=== PATIENT | male | born 1935 | race Caucasian/White ===

== ENCOUNTER 2016-07-16 12:02 | Inpatient (IN) | payer MEDICARE ==
[2016-07-16] MEDS ORDERED: NS 0.9% 1000 ML* 3,000 ML IV ONE (12:12)
[2016-07-16 12:37] LABS: Comments Flag Yes; Hematocrit 38 % (42-52); Mean Corpuscular HGB Conc 34 g/dl (31-36); Mean Corpuscular Hemoglobin 32 pg (27-31); Mean Corpuscular Volume 94 fL (80-94); Mean Platelet Volume 8 um3 (7.4-10.4); Red Blood Count 4.05 10^6/ul (4.0-5.4); Red Cell Distribution Width 14 % (10.5-15); White Blood Count 2.9 10^3/ul (3.5-10.8)
[2016-07-16 12:38] LABS: Add Diff/Slide Review? Slide Review Added
--- NOTE | 2016-07-16 12:38 | RAD ---
HISTORY: Cough, shortness of breath, pneumonia COMPARISONS: July 09, 2011 VIEWS: 2: Frontal dual-energy and lateral views of the chest. FINDINGS: CARDIOMEDIASTINAL SILHOUETTE: The cardiomediastinal silhouette is normal. KIRT: The kirt are normal. PLEURA: The costophrenic angles are sharp. No pleural abnormalities are noted. LUNG PARENCHYMA: The lungs are clear. ABDOMEN: The upper abdomen is clear. There is no subphrenic gas. BONES AND SOFT TISSUES: No bone or soft tissue abnormalities are noted. OTHER: None. IMPRESSION: NO ACTIVE CARDIOPULMONARY DISEASE.
[2016-07-16 12:57] LABS: BUN/Creatinine Ratio 25.3 (8-20); C Reactive Protein 8.1 mg/L (< 5.00); EGFR African American 102.8 (>60); Globulin 2.9 g/dL (2-4); Potassium 3.8 mmol/L (3.5-5.0); Total Bilirubin 0.7 mg/dL (0.2-1.0); Total Protein 6.9 g/dL (6.4-8.9)
[2016-07-16 13:04] LABS: Troponin I 0.04 ng/mL (<0.04)
[2016-07-16] MEDS ORDERED: Acetaminophen TAB* 325 MG PO ONE (13:16)
[2016-07-16] MEDS ORDERED: Aspirin Low Dose CHEW TAB* 81 MG PO ONE (13:17)
[2016-07-16] MEDS ORDERED: Oseltamivir CAP* 75 MG PO ONE (13:18)
[2016-07-16] MEDS ORDERED: Acetaminophen TAB* 325 MG PO PRN (14:20)
[2016-07-16] MEDS ORDERED: HYDROcodone/ACETAMIN 5-325 MG* 1 TAB PO PRN (14:33)
--- NOTE | 2016-07-16 15:44 | ED ---
Michael Canela Billy, scribed for Chapincito Keith MD on 07/16/16 at 1307 . Complex/Multi-Sys Presentation - HPI Summary HPI Summary: Patient is an 81 year-old male coming to [facility] from Dr. Cooper's office for evaluating of three days of cough and rhinorrhea. Patient also reports a headache, aches, and subjective fever. Denies any SOB, nausea, vomiting, or diarrhea. Nothing makes his symptoms better/worse. He has ongoing right shoulder pain s/p mechanical fall 2 weeks ago. Denies any recent influenza vaccinations. PMHx of HTN and afib. - History Of Current Complaint Chief Complaint: EDGeneral Time Seen by Provider: 07/16/16 12:07 Hx Obtained From: Patient Onset/Duration: Gradual Onset, Lasting Days, Still Present Timing: Constant Severity Currently: Moderate Severity Initially: Moderate Aggravating Factor(s): none Alleviating Factor(s): none Associated Signs And Symptoms: Positive: Cough, Fever, Other - myalgia, rhinorrhea,. Negative: SOB, Nausea, Vomiting, Diarrhea - Allergies/Home Medications Allergies/Adverse Reactions: Allergies Allergy/AdvReac Type Severity Reaction Status Date / Time Penicillins Allergy Intermediate RASH/HIVES Verified 12/14/14 14:54 Amitriptyline Allergy SEVERE Verified 12/14/14 14:54 NAUSEA AND VOMITING Amlodipine Allergy Unknown Verified 12/14/14 14:54 Reaction Details Doxycycline Allergy Unknown Verified 12/14/14 14:54 Reaction Details Gabapentin Allergy Unknown Verified 12/14/14 14:54 Reaction Details Meloxicam Allergy Unknown Verified 12/14/14 14:54 Reaction Details Temazepam Allergy Unknown Verified 12/14/14 14:54 Reaction Details SULFA/BACTRIM Allergy GI Upset Uncoded 12/14/14 14:54 Home Medications: Home Medications Cyclobenzaprine TAB* [Flexeril 10 MG TAB*] 10 mg PO BEDTIME 07/16/16 [History Confirmed 07/16/16] Desonide 0.005% OINT(NF) 1 applic TOPICAL BID 07/16/16 [History Confirmed ] Finasteride TAB* [Proscar TAB*] 5 mg PO DAILY 07/16/16 [History Confirmed ] Hydrocodone/Acetamin 10/325(NF [Muscoda 10/325 (NF)] 1 tab PO Q6H PRN 07/16/16 [ History Confirmed 07/16/16] Ketoconazole (Topical) [Ketoconazole] 2 % TOPICAL .TWICE WEEKLY PRN 07/16/16 [ History Confirmed 07/16/16] Metoprolol Succinate XL TAB* [Toprol XL TAB*] 25 mg PO DAILY 07/16/16 [History Confirmed 07/16/16] Pantoprazole TAB (NF) [Protonix TAB (NF)] 40 mg PO DAILY 07/16/16 [History Confirmed 07/16/16] Rivaroxaban TAB(*) [Xarelto 20 mg] 20 mg PO DAILY 07/16/16 [History Confirmed ] Spironolactone TAB* [Aldactone TAB*] 25 mg PO DAILY 07/16/16 [History Confirmed 07/16/16] Tamsulosin CAP* [Flomax CAP*] 0.8 mg PO DAILY 07/16/16 [History Confirmed ] Telmisartan-Hydrochlorothiazid [Telmisartan/Hydrochloroth 80-12.5 mg] 1 tab PO DAILY 07/16/16 [History Confirmed 07/16/16] Telmisartan-Hydrochlorothiazid [Telmisartan/Hydrochloroth 80-25 mg] 1 tab PO DAILY 07/16/16 [History Confirmed 07/16/16] PMH/Surg Hx/FS Hx/Imm Hx Cardiovascular History: Reports: Hx Hypertension - CONTROL WITH MEDICATION, Other Cardiovascular Problems/Disorders - STATES HAS A LOW RESTING HEART RATE- 36-STATES VERY ACTIVE Respiratory History: Reports: Hx Asthma - MEDICALLY INDUCED GI History: Reports: Hx Gastroesophageal Reflux Disease - ON MEDS, Hx Irritable Bowel History: Reports: Other Problems/Disorders - HISTORY OF PROSTATE CANCER - TREATED WITH RADIATION SEEDS Musculoskeletal History: Reports: Hx Arthritis - LEFT WRIST, Hx Tendonitis - HX OF YEARS AGO, RIGHT ELBOW TENDONITIS NOW, Other Musculoskeletal History - 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 1979' RIGHT ELBOW SURGERY, [facility]. [place] [facility] [place]TRACTION WITH IOL IMPLANTS, [facility]. PROSTATE RADIATION SEEDING, [facility]. TONSILLECTOMY A CHILD. [place] [facility] [place] Anesthesia Reactions: No - Immunization History Date of Tetanus Vaccine: up to date per pt Infectious Disease History: No Infectious Disease History: Denies: Hx Clostridium Difficile, Hx Hepatitis, Hx Human Immunodeficiency Virus (HIV), Hx of Known/Suspected MRSA, Hx Shingles, Hx Tuberculosis, Hx Known/ Suspected VRE, Hx Known/Suspected VRSA, History Other Infectious Disease, Traveled Outside the [place] in Last 30 Days - Family History Known Family History: Negative: Cardiac Disease, Hypertension - Social History Alcohol Use: None Substance Use Type: Reports: None Smoking Status (MU): Never Smoked Tobacco Review of Systems Positive: Fever Positive: Nasal Discharge Positive: Cough. Negative: Shortness Of Breath Negative: Abdominal Pain, Vomiting, Diarrhea, Nausea Positive: Arthralgia, Myalgia Positive: Headache All Other Systems Reviewed And Are Negative: Yes Physical Exam - Summary Physical Exam Summary: The patient is well-nourished in no acute distress and in no acute pain. The skin is warm and dry and skin color reflects adequate perfusion. Decreased skin turgor. There is ecchymosis to the right shoulder, old hematoma. HEENT: The head is normocephalic and atraumatic. The pupils are equal and reactive. The conjunctivae are clear and without drainage. Rhinorrhea. Mouth reveals dry mucous membranes and the throat is without erythema and exudate. The external ears are intact. The ear canals are patent and without drainage. The tympanic membranes are intact. Neck is supple with full range of motion and non-tender. There are no carotid bruits. There is no neck vein distension. Respiratory: Chest is non-tender. There are rales in the left lung base. Cardiovascular: Heart is irregular and tachycardic. There is no murmur or rub auscultated. There is no peripheral edema and pulses are symmetrical and equal. Abdomen: The abdomen is soft and non-tender. There are normal bowel sounds heard in all four quadrants and there is no organomegaly palpated. Musculoskeletal: There is no back pain noted. Extremities are non-tender with full range of motion. There is good capillary refill. There is no peripheral edema or calf tenderness elicited. Neurological: Patient is alert and oriented to person, place and time. The patient has symmetrical motor strength in all four extremities. Cranial nerves are grossly intact. Deep tendon reflexes are symmetrical and equal in all four extremities. Psychiatric: The patient has an appropriate affect and does not exhibit any anxiety or depression. Triage Information Reviewed: Yes Vital Signs On Initial Exam: Initial Vitals BP 143/93 07/16/16 12:07 Vital Signs Reviewed: Yes Diagnostics - Vital Signs Vital Signs Temp Pulse Resp BP Pulse Ox 07/16/16 12:30 129/77 07/16/16 12:29 100 F 118 26 129/77 96 07/16/16 12:25 112 19 96 07/16/16 12:09 104 97 07/16/16 12:07 143/93 - Laboratory Lab Results: Lab Results 07/16/16 07/16/16 07/16/16 Range/Units 12:10 12:10 12:10 WBC 2.9 L (3.5-10.8) 10^3/ul RBC 4.05 (4.0-5.4) 10^6/ul Hgb 13.0 L (14.0-18.0) g/dl Hct 38 L (42-52) % MCV 94 (80-94) fL MCH 32 H (27-31) pg MCHC 34 (31-36) g/dl RDW 14 (10.5-15) % Plt Count 206 (150-450) 10^3/ul MPV 8 (7.4-10.4) um3 Neut % (Auto) 65.3 (38-83) % Lymph % (Auto) 15.0 L (25-47) % [place] % (Auto) 18.5 H (1-9) % Eos % (Auto) 0.6 (0-6) % Baso % (Auto) 0.6 (0-2) % Absolute Neuts (auto) 1.9 (1.5-7.7) 10^3/ul Absolute Lymphs (auto) 0.4 L (1.0-4.8) 10^3/ul Absolute Monos (auto) 0.5 (0-0.8) 10^3/ul Absolute Eos (auto) 0 (0-0.6) 10^3/ul Absolute Basos (auto) 0 (0-0.2) 10^3/ul Absolute Nucleated RBC 0.01 10^3/ul Nucleated RBC % 0.2 INR (Anticoag Therapy) 1.13 H (0.89-1.11) APTT 36.6 H (26.0-36.3) seconds Sodium 124 L (133-145) mmol/L Potassium 3.8 (3.5-5.0) mmol/L Chloride 92 L (101-111) mmol/L Carbon Dioxide 27 (22-32) mmol/L Anion Gap 5 (2-11) mmol/L BUN 23 (6-24) mg/dL Creatinine 0.91 (0.67-1.17) mg/dL Est GFR ( Amer) 102.8 (>60) Est GFR (Non-Af Amer) 80.0 (>60) BUN/Creatinine Ratio 25.3 H (8-20) Glucose 111 H (70-100) mg/dL Lactic Acid (0.5-2.0) mmol/L Calcium 9.0 (8.6-10.3) mg/dL Total Bilirubin 0.70 (0.2-1.0) mg/dL AST 30 (13-39) U/L ALT 28 (7-52) U/L Alkaline Phosphatase 55 (34-104) U/L Troponin I 0.04 H* (<0.04) ng/mL C-Reactive Protein 8.10 H (< 5.00) mg/L B-Natriuretic Peptide ( - 100) pg/mL Total Protein 6.9 (6.4-8.9) g/dL Albumin 4.0 (3.2-5.2) g/dL Globulin 2.9 (2-4) g/dL Albumin/Globulin Ratio 1.4 (1-3) Influenza A (Rapid) (Negative) Influenza B (Rapid) (Negative) 07/16/16 07/16/16 07/16/16 Range/Units 12:10 12:10 12:37 WBC (3.5-10.8) 10^3/ul RBC (4.0-5.4) 10^6/ul Hgb (14.0-18.0) g/dl Hct (42-52) % MCV (80-94) fL MCH (27-31) pg MCHC (31-36) g/dl RDW (10.5-15) % Plt Count (150-450) 10^3/ul MPV (7.4-10.4) um3 Neut % (Auto) (38-83) % Lymph % (Auto) (25-47) % [place] % (Auto) (1-9) % Eos % (Auto) (0-6) % Baso % (Auto) (0-2) % Absolute Neuts (auto) (1.5-7.7) 10^3/ul Absolute Lymphs (auto) (1.0-4.8) 10^3/ul Absolute Monos (auto) (0-0.8) 10^3/ul Absolute Eos (auto) (0-0.6) 10^3/ul Absolute Basos (auto) (0-0.2) 10^3/ul Absolute Nucleated RBC 10^3/ul Nucleated RBC % INR (Anticoag Therapy) (0.89-1.11) APTT (26.0-36.3) seconds Sodium (133-145) mmol/L Potassium (3.5-5.0) mmol/L Chloride (101-111) mmol/L Carbon Dioxide (22-32) mmol/L Anion Gap (2-11) mmol/L BUN (6-24) mg/dL Creatinine (0.67-1.17) mg/dL Est GFR ( Amer) (>60) Est GFR (Non-Af Amer) (>60) BUN/Creatinine Ratio (8-20) Glucose (70-100) mg/dL Lactic Acid 1.8 (0.5-2.0) mmol/L Calcium (8.6-10.3) mg/dL Total Bilirubin (0.2-1.0) mg/dL AST (13-39) U/L ALT (7-52) U/L Alkaline Phosphatase (34-104) U/L Troponin I (<0.04) ng/mL C-Reactive Protein (< 5.00) mg/L B-Natriuretic Peptide 123 H ( - 100) pg/mL Total Protein (6.4-8.9) g/dL Albumin (3.2-5.2) g/dL Globulin (2-4) g/dL Albumin/Globulin Ratio (1-3) Influenza A (Rapid) Negative (Negative) Influenza B (Rapid) Positive H (Negative) Result Diagrams: 07/16/16 12:10 07/16/16 12:10 Lab Statement: Any lab studies that have been ordered have been reviewed, and results considered in the medical decision making process. - Radiology CXR Xray Interpretation: No Acute Changes Radiology Interpretation Completed By: Radiologist - EKG 1349 EKG Interpretation: afib 110 bpm, LAD, poor R-wave progression, non-specific ST changes Re-Evaluation - Re-Evaluation First Eval Re-Evaluation Time: 13:22 Complex Multi-Symp Course/Dx Assessment/Plan: Patient is an 81 year-old male coming to [facility] for evaluation of cough for three days. CXR shows no acute changes. EKG shows afib 110 bpm, LAD , poor R-wave progression, non-specific ST changes. Influenza B positive. Patient also has elevated troponin. Case discussed with Dr. Grimaldo who accepted the patient for admission. - Diagnoses Differential Diagnoses/HQI/PQRI: Other - mi, influenza, pneumonia, dehydration, Provider Diagnoses: Influenza, Dehydration, Elevated troponin - Physician Notifications Discussed Care Of Patient With: Dr. Grimaldo (hospitalist) @ 1329: accepted admission. Discharge - Discharge Plan Condition: Stable Disposition: ADMITTED TO [facility] documentation as recorded by the Michael jha Billy accurately reflects the service I personally performed and the decisions made by , Chapincito Keith MD.
[2016-07-16] MEDS: NS 0.9% 1000 ML* 1,000 ML IV SCH (16:56)
--- NOTE | 2016-07-16 17:31 | HP ---
HISTORY AND PHYSICAL: DATE OF ADMISSION: 07/16/16 PRIMARY CARE PROVIDER: Dr. Cooper. CHIEF COMPLAINT: Body aches, dry cough. HISTORY OF PRESENT ILLNESS: Mr. Preciado is an 81-year-old male with history of prostate cancer and hypertension who went to see Dr. Cooper with complaints of having body aches and cough. The patient was noted to have outpatient blood work with hyponatremia and appeared very weak. He was sent by the primary care provider to the ED for evaluation. Here he has hyponatremia with a sodium of 124. His influenza B swab is positive. He is going to be admitted with a diagnosis of influenza B, dehydration, hyponatremia. PAST MEDICAL HISTORY: 1. History of prostate cancer, status post brachytherapy with intermittent problems with urinary retention and self-catheterizations p.r.n. 2. History of myelopathy. 3. History of osteoarthritis. 4. History of osteoporosis. 5. History of right rotator cuff tear. 6. Gastroesophageal reflux disease. 7. Hypertension. 8. History of atrial fibrillation for which the patient was started being on anticoagulation with Xarelto 2 months ago. 9. History of fall 1 month ago and subsequent right shoulder hematoma. The patient continued his Xarelto. MEDICATIONS: At home include: 1. Telmisartan/hydrochlorothiazide 80/25, 1 tablet daily. 2. Flomax 0.8 mg daily. 3. Aldactone 25 mg daily. 4. Xarelto 20 mg daily. 5. Protonix 40 mg daily. 6. Metoprolol succinate 25 mg daily. 7. Ketoconazole 2% topical twice weekly p.r.n. 8. Hydrocodone with acetaminophen 10/325 mg every 6 hours p.r.n. 9. Proscar 5 mg daily. 10. Desonide topical ointment 0.005%, 1 application topically b.i.d. p.r.n. 11. Flexeril 10 mg at bedtime. ALLERGIES: 1. HYDROCODONE causes rash. 2. NORVASC causes edema. 3. HYDRALAZINE causes GI upset. 4. HYTRIN causes [employer] problems. FAMILY HISTORY: Reviewed and noncontributory. SOCIAL HISTORY: The patient quit smoking in 1968. He denies any alcohol or drug use. He lives independently and alone. 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 He stated that in the past few days, he was unable to exercise. His surrogate is his sister, Erin Alonzo, who lives in [place]. REVIEW OF SYSTEMS: Please see history of present illness. Other remaining 14 systems were reviewed with the patient and were otherwise negative. PHYSICAL EXAMINATION GENERAL: The patient is a very pleasant 81-year-old male who appears younger than the stated age. The patient is not in acute distress. He is alert, awake and oriented x3. VITAL SIGNS: Blood pressure 143/99, heart rate of 100 and irregular, respiratory rate 24, oxygen saturation 96% on room air, temperature of 100. HEENT: Head is atraumatic and normocephalic. Eyes: Pupils are equal and reactive to light and accommodation. Oropharynx clear. Mucosa dry. NECK: Supple. No JVD. No bruits bilaterally. RESPIRATORY: Clear to auscultation bilaterally. CARDIOVASCULAR: Irregularly irregular rhythm, no murmur. ABDOMEN: Soft, nontender. Bowel sounds present in all 4 quadrants. EXTREMITIES: No edema. Pulses are +2 bilaterally. No clubbing or cyanosis. NEUROLOGIC: Speech is clear. Cranial nerves II through XII are grossly intact. Motor strength is 5/5 bilaterally. SKIN: There is a large ecchymotic area overlying the right shoulder that is almost resolved. PSYCHIATRIC: The patient is alert and oriented x3, with no evidence of anxiety or depression. LABORATORY DATA: Serology positive for influenza B. Sodium of 124, potassium of 3.8, chloride 92, carbon dioxide 27, BUN 23, creatinine 0.9. Liver function tests unremarkable. Glucose of 111. Troponin of 0.04. C- reactive protein of 8.1. Brain natriuretic peptide was 123. White blood cell count of 2.9, hemoglobin of 13.3, hematocrit of 38, MCV of 94, and platelets of 206. Portable chest x-ray, impression: "No active cardiopulmonary disease present." The patient's EKG shows atrial fibrillation with a heart rate of 110 beats per minute with nonspecific ST changes. ASSESSMENT AND PLAN: The patient is going to be admitted to telemetry monitored floor with his mildly elevated troponin. In regards to the patient's indeterminate troponin, it is most likely demand ischemia. He has no symptoms of chest pain and his EKG is unremarkable. In regards to the patient's influenza, the patient is going to be treated supportively with intravenous fluids as well as Tamiflu. In regards to the chronic atrial fibrillation, it appears to be in fairly rate controlled state. The patient is going to be continued on his metoprolol. In regards to the patient's hypertension, his Aldactone is going to be restarted tomorrow. Due to the patient's hyponatremia which is most likely due to hypovolemia and dehydration, his telmisartan and hydrochlorothiazide is going to be held. Sodium level is going to be rechecked in the morning. For anticoagulation, Xarelto is going to be continued. In regards to the history of prostate cancer and symptoms of urinary retention in the past, the patient's Proscar as well as Flomax is going to be continued. For chronic lower back pain, Flexeril is going to be continued. For DVT prophylaxis, the patient is going to be continued on Xarelto. Code status if full. TIME SPENT: Approximately 70 minutes were spent on admission of this patient, more than half that time was spent [id number] with the patient during the interview and physical exam. CC: Dr. Cooper* [id number]/[facility] #: [id number] WILLI
[2016-07-16] MEDS: Cyclobenzaprine TAB* 10 MG PO SCH (20:11)
[2016-07-16] MEDS: guaiFENesin LIQ* 100 MG/5 ML UDC PO PRN (20:11)
[2016-07-16] MEDS: Oseltamivir CAP* 75 MG PO SCH (20:11)
[2016-07-16] MEDS: Hydrocortisone 1% CREAM* 1.5 GM PAK TOPICAL SCH (20:19)
[2016-07-16] MEDS ORDERED: Benzonatate CAP* 100 MG PO PRN (21:58)
[2016-07-16 23:28] LABS: Urine Bacteria 1+ (Absent); Urine Bilirubin Negative (Negative); Urine Glucose Negative (Negative); Urine Nitrite Negative (Negative); Urine Sperm Present (Absent)
[2016-07-17] MEDS: Melatonin (NF) 3 MG TAB PO PRN ×2 (00:09→20:49)
[2016-07-17] MEDS: NS 0.9% 1000 ML* 1,000 ML IV SCH (02:00)
[2016-07-17] MEDS: Omeprazole CAP* 20 MG PO SCH (05:37)
[2016-07-17 06:56] LABS: Hematocrit 36 % (42-52); Hemoglobin 12.6 g/dl (14.0-18.0); Mean Corpuscular HGB Conc 35 g/dl (31-36); Mean Corpuscular Hemoglobin 32 pg (27-31); Mean Corpuscular Volume 93 fL (80-94); Mean Platelet Volume 8 um3 (7.4-10.4); Red Blood Count 3.91 10^6/ul (4.0-5.4); Red Cell Distribution Width 14 % (10.5-15)
[2016-07-17 06:57] LABS: Comments Flag Yes; White Blood Count 2.4 10^3/ul (3.5-10.8)
[2016-07-17 07:11] LABS: BUN/Creatinine Ratio 19.4 (8-20); Calcium 8.2 mg/dL (8.6-10.3); EGFR African American 134.7 (>60); EGFR Non-African American 104.8 (>60)
[2016-07-17] MEDS: Finasteride TAB* 5 MG PO SCH (09:07)
[2016-07-17] MEDS: Tamsulosin CAP* 0.4 MG PO SCH (09:07)
[2016-07-17] MEDS: Rivaroxaban TAB(*) 20 MG TAB PO SCH (09:07)
[2016-07-17] MEDS: Gabapentin CAP(*) 100 MG PO SCH ×2 (09:08→20:37)
[2016-07-17] MEDS: Oseltamivir CAP* 75 MG PO SCH ×2 (09:08→20:37)
[2016-07-17] MEDS: Spironolactone TAB* 25 MG PO SCH (09:09)
[2016-07-17] MEDS: Hydrocortisone 1% CREAM* 1.5 GM PAK TOPICAL SCH ×2 (09:09→20:40)
[2016-07-17] MEDS: Metoprolol Succinate XL TAB* 25 MG PO SCH (09:09)
--- NOTE | 2016-07-17 11:49 | PN ---
Subjective Date of Service: 07/17/16 Interval History: pt still feels unwell. c/o cough productive of yellow sputum, afebrile. c/o chronic neuropathic pain and tingling in b/l feet. Objective Active Medications: Acetaminophen (Tylenol Tab*) 650 mg PO Q4H PRN PRN Reason: FEVER/PAIN Last Admin: 07/16/16 20:17 Dose: 650 mg Benzonatate (Tessalon Cap*) 100 mg PO TID [facility] Cyclobenzaprine HCl (Flexeril Tab*) 10 mg PO BEDTIME [facility] Last Admin: 07/16/16 20:11 Dose: 10 mg Finasteride (Proscar Tab*) 5 mg PO DAILY [facility] Last Admin: 07/17/16 09:07 Dose: 5 mg Gabapentin (Neurontin Cap(*)) 100 mg PO BID [facility] Last Admin: 07/17/16 09:08 Dose: 100 mg Guaifenesin (Robitussin*) 5 ml PO Q4H PRN PRN Reason: COUGH Last Admin: 07/16/16 20:11 Dose: 5 ml Hydrocortisone (Hydrocortisone 1% Cream*) 1 applic TOPICAL BID [facility] Last Admin: 07/17/16 09:09 Dose: 1 applic Melatonin (Melatonin (Nf)) 3 mg PO BEDTIME PRN PRN Reason: SLEEP Last Admin: 07/17/16 00:09 Dose: 3 mg Metoprolol Succinate (Toprol Xl Tab*) 25 mg PO DAILY [facility] Last Admin: 07/17/16 09:09 Dose: 25 mg Omeprazole (Prilosec Cap*) 20 mg PO DAILY@0600 [facility] Last Admin: 07/17/16 05:37 Dose: 20 mg Oseltamivir Phosphate (Tamiflu Cap*) 75 mg PO BID [facility] Stop: 07/21/16 09:01 Last Admin: 07/17/16 09:08 Dose: 75 mg Rivaroxaban (Xarelto (*)) 20 mg PO DAILY [facility] Last Admin: 07/17/16 09:07 Dose: 20 mg Spironolactone (Aldactone Tab*) 25 mg PO DAILY [facility] Last Admin: 07/17/16 09:09 Dose: 25 mg Tamsulosin HCl (Flomax Cap*) 0.8 mg PO DAILY [facility] Last Admin: 07/17/16 09:07 Dose: 0.8 mg Vital Signs 07/17/16 07/17/16 09:08 11:08 Respiratory 16 20 Rate Oxygen Devices in Use Now: None Appearance: 81 yo M in nAD, AAOx3 Eyes: No Scleral Icterus, PERRLA Ears/Nose/Mouth/Throat: NL Teeth, Lips, Gums, Mucous Membranes Moist Neck: NL Appearance and Movements; NL JVP, Trachea Midline Respiratory: Symmetrical Chest Expansion and Respiratory Effort, Clear to Auscultation Cardiovascular: NL Sounds; No Murmurs; No JVD, - - irragular Abdominal: NL Sounds; No Tenderness; No Distention, No Hepatosplenomegaly Lymphatic: No Cervical Adenopathy Extremities: No Edema, No Clubbing, Cyanosis Skin: No Nodules or Sclerosis, - - r shoulder ecchymosis-resolving Neurological: Alert and Oriented x 3, NL Muscle Strength and Tone Result Diagrams: 07/17/16 06:34 07/17/16 06:34 Additional Lab and Data: Lab Results 07/16/16 07/16/16 07/16/16 Range/Units 12:10 12:10 12:10 WBC 2.9 L (3.5-10.8) 10^3/ul RBC 4.05 (4.0-5.4) 10^6/ul Hgb 13.0 L (14.0-18.0) g/dl Hct 38 L (42-52) % MCV 94 (80-94) fL MCH 32 H (27-31) pg MCHC 34 (31-36) g/dl RDW 14 (10.5-15) % Plt Count 206 (150-450) 10^3/ul MPV 8 (7.4-10.4) um3 Neut % (Auto) 65.3 (38-83) % Lymph % (Auto) 15.0 L (25-47) % [place] % (Auto) 18.5 H (1-9) % Eos % (Auto) 0.6 (0-6) % Baso % (Auto) 0.6 (0-2) % Absolute Neuts (auto) 1.9 (1.5-7.7) 10^3/ul Absolute Lymphs (auto) 0.4 L (1.0-4.8) 10^3/ul Absolute Monos (auto) 0.5 (0-0.8) 10^3/ul Absolute Eos (auto) 0 (0-0.6) 10^3/ul Absolute Basos (auto) 0 (0-0.2) 10^3/ul Absolute Nucleated RBC 0.01 10^3/ul Nucleated RBC % 0.2 INR (Anticoag Therapy) 1.13 H (0.89-1.11) APTT 36.6 H (26.0-36.3) seconds Sodium 124 L (133-145) mmol/L Potassium 3.8 (3.5-5.0) mmol/L Chloride 92 L (101-111) mmol/L Carbon Dioxide 27 (22-32) mmol/L Anion Gap 5 (2-11) mmol/L BUN 23 (6-24) mg/dL Creatinine 0.91 (0.67-1.17) mg/dL Est GFR ( Amer) 102.8 (>60) Est GFR (Non-Af Amer) 80.0 (>60) BUN/Creatinine Ratio 25.3 H (8-20) Glucose 111 H (70-100) mg/dL Lactic Acid (0.5-2.0) mmol/L Calcium 9.0 (8.6-10.3) mg/dL Total Bilirubin 0.70 (0.2-1.0) mg/dL AST 30 (13-39) U/L ALT 28 (7-52) U/L Alkaline Phosphatase 55 (34-104) U/L Troponin I 0.04 H* (<0.04) ng/mL C-Reactive Protein 8.10 H (< 5.00) mg/L B-Natriuretic Peptide ( - 100) pg/mL Total Protein 6.9 (6.4-8.9) g/dL Albumin 4.0 (3.2-5.2) g/dL Globulin 2.9 (2-4) g/dL Albumin/Globulin Ratio 1.4 (1-3) Influenza A (Rapid) (Negative) Influenza B (Rapid) (Negative) 07/16/16 07/16/16 07/16/16 Range/Units 12:10 12:10 12:37 WBC (3.5-10.8) 10^3/ul RBC (4.0-5.4) 10^6/ul Hgb (14.0-18.0) g/dl Hct (42-52) % MCV (80-94) fL MCH (27-31) pg MCHC (31-36) g/dl RDW (10.5-15) % Plt Count (150-450) 10^3/ul MPV (7.4-10.4) um3 Neut % (Auto) (38-83) % Lymph % (Auto) (25-47) % [place] % (Auto) (1-9) % Eos % (Auto) (0-6) % Baso % (Auto) (0-2) % Absolute Neuts (auto) (1.5-7.7) 10^3/ul Absolute Lymphs (auto) (1.0-4.8) 10^3/ul Absolute Monos (auto) (0-0.8) 10^3/ul Absolute Eos (auto) (0-0.6) 10^3/ul Absolute Basos (auto) (0-0.2) 10^3/ul Absolute Nucleated RBC 10^3/ul Nucleated RBC % INR (Anticoag Therapy) (0.89-1.11) APTT (26.0-36.3) seconds Sodium (133-145) mmol/L Potassium (3.5-5.0) mmol/L Chloride (101-111) mmol/L Carbon Dioxide (22-32) mmol/L Anion Gap (2-11) mmol/L BUN (6-24) mg/dL Creatinine (0.67-1.17) mg/dL Est GFR ( Amer) (>60) Est GFR (Non-Af Amer) (>60) BUN/Creatinine Ratio (8-20) Glucose (70-100) mg/dL Lactic Acid 1.8 (0.5-2.0) mmol/L Calcium (8.6-10.3) mg/dL Total Bilirubin (0.2-1.0) mg/dL AST (13-39) U/L ALT (7-52) U/L Alkaline Phosphatase (34-104) U/L Troponin I (<0.04) ng/mL C-Reactive Protein (< 5.00) mg/L B-Natriuretic Peptide 123 H ( - 100) pg/mL Total Protein (6.4-8.9) g/dL Albumin (3.2-5.2) g/dL Globulin (2-4) g/dL Albumin/Globulin Ratio (1-3) Influenza A (Rapid) Negative (Negative) Influenza B (Rapid) Positive H (Negative) Assess/Plan/Problems-Billing Assessment: 81 yo M with h/o chronic A. fib presents with influenza B. - Patient Problems (1) Influenza B Comment: cont Tamiflu and antitussives, still very weak, will cont inpatient tx. (2) Hyponatremia Comment: due to a combination of dehydration and pre admission use of HCTZ. today pt appears euvolemic. will d/c IVF and monitor Improving. (3) Atrial fibrillation Comment: chronic, rate controlled on lopressor. (4) Neuropathy Comment: will start gabapentin check Vit B12 (5) Leukopenia Comment: due to influenza most likley will monitor (6) HTN (hypertension) Comment: cont Aldactone nd lopressor, controlled (7) Troponin I above reference range Comment: "flat " at 0.04-pt is symptomatic, suspect due to ongoing illness and demand ischemia. No further tests needed. d/c telem (8) DVT prophylaxis Comment: Xarelto Status and Disposition: OBV changed to inpatient. Estimated LOS total approx 3 days.
[2016-07-17] MEDS: Benzonatate CAP* 100 MG PO SCH ×2 (12:08→20:36)
[2016-07-17] MEDS: cefTRIAXone VIAL(*) 1,000 MG in NS 0.9% 50 ML* 50 ML IVPB SCH (13:06)
--- NOTE | 2016-07-17 13:33 | RAD ---
HISTORY: Rule out pneumonia, dyspnea COMPARISONS: July 16, 2016 VIEWS:1: Single frontal portable view of the chest at 1:15 PM FINDINGS: LINES AND TUBES: None. CARDIOMEDIASTINAL SILHOUETTE: The cardiomediastinal silhouette is normal for portable technique. PLEURA: The costophrenic angles are sharp. No pleural abnormalities are noted. LUNG PARENCHYMA: The lungs are clear. ABDOMEN: The upper abdomen is clear. There is no subphrenic gas. BONES AND SOFT TISSUES: No bone or soft tissue abnormalities are noted. IMPRESSION: NO ACTIVE CARDIOPULMONARY DISEASE.
[2016-07-17] MEDS: Azithromycin IV(*) 500 MG in NS 0.9% 250 ML* 250 ML IVPB SCH (14:27)
[2016-07-17] MEDS: oxyCODONE/Acetamin 5/325 MG* TAB PO PRN ×2 (15:39→20:43)
[2016-07-17] MEDS: Cyclobenzaprine TAB* 10 MG PO SCH (20:38)
[2016-07-18] MEDS: Omeprazole CAP* 20 MG PO SCH (05:36)
[2016-07-18 06:42] LABS: BUN/Creatinine Ratio 22.2 (8-20); Calcium 8.1 mg/dL (8.6-10.3); EGFR African American 134.7 (>60); EGFR Non-African American 104.8 (>60); Potassium 3.8 mmol/L (3.5-5.0)
[2016-07-18] MEDS: Gabapentin CAP(*) 100 MG PO SCH ×2 (08:58→23:09)
[2016-07-18] MEDS: NS 0.9% 1000 ML* 1,000 ML IV SCH (08:58)
[2016-07-18] MEDS: Benzonatate CAP* 100 MG PO SCH ×3 (08:58→23:06)
[2016-07-18] MEDS: Oseltamivir CAP* 75 MG PO SCH ×2 (08:59→23:10)
[2016-07-18] MEDS: Tamsulosin CAP* 0.4 MG PO SCH (08:59)
[2016-07-18] MEDS: Spironolactone TAB* 25 MG PO SCH (08:59)
[2016-07-18] MEDS: oxyCODONE/Acetamin 5/325 MG* TAB PO PRN (08:59)
[2016-07-18] MEDS: Rivaroxaban TAB(*) 20 MG TAB PO SCH (09:00)
[2016-07-18] MEDS: Finasteride TAB* 5 MG PO SCH (09:00)
[2016-07-18] MEDS: Metoprolol Succinate XL TAB* 25 MG PO SCH (09:00)
[2016-07-18 09:11] LABS: Hematocrit 37 % (42-52); Hemoglobin 12.8 g/dl (14.0-18.0); Mean Corpuscular HGB Conc 34 g/dl (31-36); Mean Corpuscular Hemoglobin 32 pg (27-31); Mean Corpuscular Volume 92 fL (80-94); Mean Platelet Volume 8 um3 (7.4-10.4); Red Blood Count 4.01 10^6/ul (4.0-5.4); Red Cell Distribution Width 14 % (10.5-15)
[2016-07-18 09:13] LABS: Comments Flag Yes
[2016-07-18] MEDS: Hydrocortisone 1% CREAM* 1.5 GM PAK TOPICAL SCH ×3 (09:13→23:16)
[2016-07-18 09:14] LABS: Add Diff/Slide Review? Slide Review Added; White Blood Count 2.1 10^3/ul (3.5-10.8)
--- NOTE | 2016-07-18 13:05 | PN ---
Subjective Date of Service: 07/18/16 Interval History: Pt feels better, but very weak. C/o nonproductive cough. Objective Active Medications: Acetaminophen (Tylenol Tab*) 650 mg PO Q4H PRN PRN Reason: FEVER/PAIN Last Admin: 07/16/16 20:17 Dose: 650 mg Benzonatate (Tessalon Cap*) 100 mg PO TID [facility] Last Admin: 07/18/16 08:58 Dose: 100 mg Cyclobenzaprine HCl (Flexeril Tab*) 10 mg PO BEDTIME [facility] Last Admin: 07/17/16 20:38 Dose: 10 mg Finasteride (Proscar Tab*) 5 mg PO DAILY [facility] Last Admin: 07/18/16 09:00 Dose: 5 mg Gabapentin (Neurontin Cap(*)) 100 mg PO BID [facility] Last Admin: 07/18/16 08:58 Dose: 100 mg Guaifenesin (Robitussin*) 5 ml PO Q4H PRN PRN Reason: COUGH Last Admin: 07/16/16 20:11 Dose: 5 ml Hydrocortisone (Hydrocortisone 1% Cream*) 1 applic TOPICAL BID [facility] Ceftriaxone Sodium 1,000 mg/ (Sodium Chloride) 50 mls @ 200 mls/hr IVPB Q24H [facility] Last Admin: 07/17/16 13:06 Dose: 200 mls/hr Azithromycin 500 mg/ Sodium (Chloride) 250 mls @ 250 mls/hr IVPB Q24H [facility] Last Admin: 07/17/16 14:27 Dose: 250 mls/hr Sodium Chloride (Ns 0.9% 1000 Ml*) 1,000 mls @ 75 mls/hr IV PER RATE [facility] Last Admin: 07/18/16 08:58 Dose: 75 mls/hr Melatonin (Melatonin (Nf)) 3 mg PO BEDTIME PRN PRN Reason: SLEEP Last Admin: 07/17/16 20:49 Dose: 3 mg Metoprolol Succinate (Toprol Xl Tab*) 25 mg PO DAILY [facility] Last Admin: 07/18/16 09:00 Dose: 25 mg Omeprazole (Prilosec Cap*) 20 mg PO DAILY@0600 [facility] Last Admin: 07/18/16 05:36 Dose: 20 mg Oseltamivir Phosphate (Tamiflu Cap*) 75 mg PO BID [facility] Stop: 07/21/16 09:01 Last Admin: 07/18/16 08:59 Dose: 75 mg Oxycodone/Acetaminophen (Percocet 5/325 Tab*) 1 tab PO Q4H PRN PRN Reason: PAIN Last Admin: 07/18/16 08:59 Dose: 1 tab Rivaroxaban (Xarelto (*)) 20 mg PO DAILY [facility] Last Admin: 07/18/16 09:00 Dose: 20 mg Spironolactone (Aldactone Tab*) 25 mg PO DAILY [facility] Last Admin: 07/18/16 08:59 Dose: 25 mg Tamsulosin HCl (Flomax Cap*) 0.8 mg PO DAILY [facility] Last Admin: 07/18/16 08:59 Dose: 0.8 mg Vital Signs 07/17/16 07/17/16 07/17/16 15:21 15:35 15:39 Temperature 98.6 F Pulse Rate 93 Respiratory 20 18 20 Rate Blood Pressure 126/75 (mmHg) O2 Sat by Pulse 94 Oximetry 07/17/16 07/17/16 07/17/16 17:39 20:00 20:37 Temperature Pulse Rate Respiratory 18 18 18 Rate Blood Pressure (mmHg) O2 Sat by Pulse Oximetry 07/17/16 07/17/16 07/17/16 20:38 20:43 22:37 Temperature Pulse Rate Respiratory 18 18 16 Rate Blood Pressure (mmHg) O2 Sat by Pulse Oximetry 07/17/16 07/17/16 07/17/16 22:38 22:43 23:42 Temperature 98.6 F Pulse Rate 71 Respiratory 16 16 16 Rate Blood Pressure 131/81 (mmHg) O2 Sat by Pulse 94 Oximetry 07/18/16 07/18/16 07/18/16 00:38 07:36 08:00 Temperature 98.2 F Pulse Rate 88 Respiratory 16 16 20 Rate Blood Pressure 150/95 (mmHg) O2 Sat by Pulse 96 Oximetry 07/18/16 07/18/16 08:58 08:59 Temperature Pulse Rate Respiratory 18 18 Rate Blood Pressure (mmHg) O2 Sat by Pulse Oximetry Oxygen Devices in Use Now: None Appearance: 81 yo M in nAD, aAOx3 Eyes: No Scleral Icterus, PERRLA Ears/Nose/Mouth/Throat: NL Teeth, Lips, Gums, Mucous Membranes Moist Neck: NL Appearance and Movements; NL JVP, Trachea Midline Respiratory: Symmetrical Chest Expansion and Respiratory Effort, - - crackles at LLL Cardiovascular: NL Sounds; No Murmurs; No JVD, - - irregular Abdominal: NL Sounds; No Tenderness; No Distention, No Hepatosplenomegaly Lymphatic: No Cervical Adenopathy Extremities: No Edema, No Clubbing, Cyanosis Skin: No Rash or Ulcers, No Nodules or Sclerosis Neurological: Alert and Oriented x 3, NL Muscle Strength and Tone Result Diagrams: 07/18/16 08:59 07/18/16 05:56 Additional Lab and Data: Lab Results 07/16/16 07/16/16 07/16/16 Range/Units 12:10 12:10 12:10 WBC 2.9 L (3.5-10.8) 10^3/ul RBC 4.05 (4.0-5.4) 10^6/ul Hgb 13.0 L (14.0-18.0) g/dl Hct 38 L (42-52) % MCV 94 (80-94) fL MCH 32 H (27-31) pg MCHC 34 (31-36) g/dl RDW 14 (10.5-15) % Plt Count 206 (150-450) 10^3/ul MPV 8 (7.4-10.4) um3 Neut % (Auto) 65.3 (38-83) % Lymph % (Auto) 15.0 L (25-47) % [place] % (Auto) 18.5 H (1-9) % Eos % (Auto) 0.6 (0-6) % Baso % (Auto) 0.6 (0-2) % Absolute Neuts (auto) 1.9 (1.5-7.7) 10^3/ul Absolute Lymphs (auto) 0.4 L (1.0-4.8) 10^3/ul Absolute Monos (auto) 0.5 (0-0.8) 10^3/ul Absolute Eos (auto) 0 (0-0.6) 10^3/ul Absolute Basos (auto) 0 (0-0.2) 10^3/ul Absolute Nucleated RBC 0.01 10^3/ul Nucleated RBC % 0.2 INR (Anticoag Therapy) 1.13 H (0.89-1.11) APTT 36.6 H (26.0-36.3) seconds Sodium 124 L (133-145) mmol/L Potassium 3.8 (3.5-5.0) mmol/L Chloride 92 L (101-111) mmol/L Carbon Dioxide 27 (22-32) mmol/L Anion Gap 5 (2-11) mmol/L BUN 23 (6-24) mg/dL Creatinine 0.91 (0.67-1.17) mg/dL Est GFR ( Amer) 102.8 (>60) Est GFR (Non-Af Amer) 80.0 (>60) BUN/Creatinine Ratio 25.3 H (8-20) Glucose 111 H (70-100) mg/dL Lactic Acid (0.5-2.0) mmol/L Calcium 9.0 (8.6-10.3) mg/dL Total Bilirubin 0.70 (0.2-1.0) mg/dL AST 30 (13-39) U/L ALT 28 (7-52) U/L Alkaline Phosphatase 55 (34-104) U/L Troponin I 0.04 H* (<0.04) ng/mL C-Reactive Protein 8.10 H (< 5.00) mg/L B-Natriuretic Peptide ( - 100) pg/mL Total Protein 6.9 (6.4-8.9) g/dL Albumin 4.0 (3.2-5.2) g/dL Globulin 2.9 (2-4) g/dL Albumin/Globulin Ratio 1.4 (1-3) Influenza A (Rapid) (Negative) Influenza B (Rapid) (Negative) 07/16/16 07/16/16 07/16/16 Range/Units 12:10 12:10 12:37 WBC (3.5-10.8) 10^3/ul RBC (4.0-5.4) 10^6/ul Hgb (14.0-18.0) g/dl Hct (42-52) % MCV (80-94) fL MCH (27-31) pg MCHC (31-36) g/dl RDW (10.5-15) % Plt Count (150-450) 10^3/ul MPV (7.4-10.4) um3 Neut % (Auto) (38-83) % Lymph % (Auto) (25-47) % [place] % (Auto) (1-9) % Eos % (Auto) (0-6) % Baso % (Auto) (0-2) % Absolute Neuts (auto) (1.5-7.7) 10^3/ul Absolute Lymphs (auto) (1.0-4.8) 10^3/ul Absolute Monos (auto) (0-0.8) 10^3/ul Absolute Eos (auto) (0-0.6) 10^3/ul Absolute Basos (auto) (0-0.2) 10^3/ul Absolute Nucleated RBC 10^3/ul Nucleated RBC % INR (Anticoag Therapy) (0.89-1.11) APTT (26.0-36.3) seconds Sodium (133-145) mmol/L Potassium (3.5-5.0) mmol/L Chloride (101-111) mmol/L Carbon Dioxide (22-32) mmol/L Anion Gap (2-11) mmol/L BUN (6-24) mg/dL Creatinine (0.67-1.17) mg/dL Est GFR ( Amer) (>60) Est GFR (Non-Af Amer) (>60) BUN/Creatinine Ratio (8-20) Glucose (70-100) mg/dL Lactic Acid 1.8 (0.5-2.0) mmol/L Calcium (8.6-10.3) mg/dL Total Bilirubin (0.2-1.0) mg/dL AST (13-39) U/L ALT (7-52) U/L Alkaline Phosphatase (34-104) U/L Troponin I (<0.04) ng/mL C-Reactive Protein (< 5.00) mg/L B-Natriuretic Peptide 123 H ( - 100) pg/mL Total Protein (6.4-8.9) g/dL Albumin (3.2-5.2) g/dL Globulin (2-4) g/dL Albumin/Globulin Ratio (1-3) Influenza A (Rapid) Negative (Negative) Influenza B (Rapid) Positive H (Negative) Assess/Plan/Problems-Billing Assessment: 81 yo M with h/o chronic A. fib presents with influenza B. - Patient Problems (1) Influenza B Comment: cont Tamiflu and antitussives, still very weak. (2) Pneumonia Comment: on 07/18/15 pt was diagnosed with superimposed bacterial pneumonia. Although CXR was read as neg, clinically pt most likely had pneumonia at admission Ceftriaxone/Aziithro started on 07/17/16 (3) Hyponatremia Comment: due to a combination of dehydration and pre admission use of HCTZ. today- mild worsening, will restart IVF, hold aldactone (4) Atrial fibrillation Comment: chronic, rate controlled on lopressor. (5) Neuropathy Comment: gabapentin started Vit B12 level >700 (6) Leukopenia Comment: due to influenza most likley will monitor (7) HTN (hypertension) Comment: cont lopressor, controlled (8) Troponin I above reference range Comment: "flat " at 0.04-pt is symptomatic, suspect due to ongoing illness and demand ischemia. No further tests needed. (9) DVT prophylaxis Comment: Xarelto Status and Disposition: OBV changed to inpatient. Estimated LOS total approx 3 days.
[2016-07-18] MEDS: cefTRIAXone VIAL(*) 1,000 MG in NS 0.9% 50 ML* 50 ML IVPB SCH (14:07)
[2016-07-18] MEDS: Azithromycin IV(*) 500 MG in NS 0.9% 250 ML* 250 ML IVPB SCH (15:29)
[2016-07-18] MEDS: Cyclobenzaprine TAB* 10 MG PO SCH (23:07)
[2016-07-19] MEDS: NS 0.9% 1000 ML* 1,000 ML IV SCH (00:44)
[2016-07-19] MEDS: Omeprazole CAP* 20 MG PO SCH (05:54)
[2016-07-19] MEDS: guaiFENesin LIQ* 100 MG/5 ML UDC PO PRN (06:05)
[2016-07-19 07:00] LABS: Comments Flag Yes; Hematocrit 35 % (42-52); Hemoglobin 12.1 g/dl (14.0-18.0); Mean Corpuscular HGB Conc 34 g/dl (31-36); Mean Corpuscular Hemoglobin 32 pg (27-31); Mean Corpuscular Volume 92 fL (80-94); Mean Platelet Volume 8 um3 (7.4-10.4); Red Blood Count 3.84 10^6/ul (4.0-5.4); Red Cell Distribution Width 13 % (10.5-15)
[2016-07-19 07:02] LABS: White Blood Count 2.1 10^3/ul (3.5-10.8)
[2016-07-19 07:11] LABS: BUN/Creatinine Ratio 15.4 (8-20); Calcium 8.4 mg/dL (8.6-10.3); EGFR African American 122.9 (>60); EGFR Non-African American 95.5 (>60)
[2016-07-19] MEDS: Benzonatate CAP* 100 MG PO SCH ×3 (10:12→22:55)
[2016-07-19] MEDS: Spironolactone TAB* 25 MG PO SCH (10:12)
[2016-07-19] MEDS: Oseltamivir CAP* 75 MG PO SCH ×2 (10:12→22:58)
[2016-07-19] MEDS: Finasteride TAB* 5 MG PO SCH (10:12)
[2016-07-19] MEDS: Tamsulosin CAP* 0.4 MG PO SCH (10:12)
[2016-07-19] MEDS: Rivaroxaban TAB(*) 20 MG TAB PO SCH (10:12)
[2016-07-19] MEDS: Metoprolol Succinate XL TAB* 25 MG PO SCH (10:12)
[2016-07-19] MEDS: Gabapentin CAP(*) 100 MG PO SCH ×2 (10:13→22:57)
[2016-07-19] MEDS: Hydrocortisone 1% CREAM* 1.5 GM PAK TOPICAL SCH ×2 (10:13→23:01)
[2016-07-19] MEDS: cefTRIAXone VIAL(*) 1,000 MG in NS 0.9% 50 ML* 50 ML IVPB SCH (12:30)
[2016-07-19] MEDS: Azithromycin IV(*) 500 MG in NS 0.9% 250 ML* 250 ML IVPB SCH (13:37)
--- NOTE | 2016-07-19 14:09 | PN ---
Subjective Date of Service: 07/19/16 Interval History: pt feels "much better". Objective Active Medications: Acetaminophen (Tylenol Tab*) 650 mg PO Q4H PRN PRN Reason: FEVER/PAIN Last Admin: 07/16/16 20:17 Dose: 650 mg Benzonatate (Tessalon Cap*) 100 mg PO TID [facility] Last Admin: 07/19/16 10:12 Dose: 100 mg Cyclobenzaprine HCl (Flexeril Tab*) 10 mg PO BEDTIME [facility] Last Admin: 07/18/16 23:07 Dose: 10 mg Finasteride (Proscar Tab*) 5 mg PO DAILY [facility] Last Admin: 07/19/16 10:12 Dose: 5 mg Gabapentin (Neurontin Cap(*)) 100 mg PO BID [facility] Last Admin: 07/19/16 10:13 Dose: 100 mg Guaifenesin (Robitussin*) 5 ml PO Q4H PRN PRN Reason: COUGH Last Admin: 07/19/16 06:05 Dose: 5 ml Hydrocortisone (Hydrocortisone 1% Cream*) 1 applic TOPICAL BID [facility] Last Admin: 07/19/16 10:13 Dose: Not Given Ceftriaxone Sodium 1,000 mg/ (Sodium Chloride) 50 mls @ 200 mls/hr IVPB Q24H [facility] Last Admin: 07/19/16 12:30 Dose: 200 mls/hr Azithromycin 500 mg/ Sodium (Chloride) 250 mls @ 250 mls/hr IVPB Q24H [facility] Last Admin: 07/19/16 13:37 Dose: 250 mls/hr Melatonin (Melatonin (Nf)) 3 mg PO BEDTIME PRN PRN Reason: SLEEP Last Admin: 07/17/16 20:49 Dose: 3 mg Metoprolol Succinate (Toprol Xl Tab*) 25 mg PO DAILY [facility] Last Admin: 07/19/16 10:12 Dose: 25 mg Omeprazole (Prilosec Cap*) 20 mg PO DAILY@0600 [facility] Last Admin: 07/19/16 05:54 Dose: 20 mg Oseltamivir Phosphate (Tamiflu Cap*) 75 mg PO BID [facility] Stop: 07/21/16 09:01 Last Admin: 07/19/16 10:12 Dose: 75 mg Oxycodone/Acetaminophen (Percocet 5/325 Tab*) 1 tab PO Q4H PRN PRN Reason: PAIN Last Admin: 07/18/16 08:59 Dose: 1 tab Rivaroxaban (Xarelto (*)) 20 mg PO DAILY [facility] Last Admin: 07/19/16 10:12 Dose: 20 mg Spironolactone (Aldactone Tab*) 25 mg PO DAILY [facility] Last Admin: 07/19/16 10:12 Dose: 25 mg Tamsulosin HCl (Flomax Cap*) 0.8 mg PO DAILY [facility] Last Admin: 07/19/16 10:12 Dose: 0.8 mg Vital Signs 07/18/16 07/18/16 07/18/16 16:29 20:00 23:07 Temperature 97.7 F Pulse Rate 71 Respiratory 18 20 18 Rate Blood Pressure 119/84 (mmHg) O2 Sat by Pulse 99 Oximetry 07/18/16 07/19/16 07/19/16 23:09 00:48 01:07 Temperature 97.7 F Pulse Rate 81 Respiratory 18 20 20 Rate Blood Pressure 140/85 (mmHg) O2 Sat by Pulse 95 Oximetry 07/19/16 07/19/16 07/19/16 01:09 07:27 10:13 Temperature 97.4 F Pulse Rate 86 Respiratory 20 16 16 Rate Blood Pressure 167/119 (mmHg) O2 Sat by Pulse 96 Oximetry 07/19/16 11:51 Temperature Pulse Rate Respiratory Rate Blood Pressure 150/89 (mmHg) O2 Sat by Pulse Oximetry Oxygen Devices in Use Now: None Appearance: 81 yo M in NAD, aAOx3 Eyes: No Scleral Icterus, PERRLA Ears/Nose/Mouth/Throat: NL Teeth, Lips, Gums, Mucous Membranes Moist Neck: NL Appearance and Movements; NL JVP, Trachea Midline Respiratory: Symmetrical Chest Expansion and Respiratory Effort, - - crackles at b/l bases Cardiovascular: NL Sounds; No Murmurs; No JVD, - - irregular Abdominal: NL Sounds; No Tenderness; No Distention, No Hepatosplenomegaly Lymphatic: No Cervical Adenopathy Extremities: No Edema, No Clubbing, Cyanosis Skin: No Rash or Ulcers, No Nodules or Sclerosis Neurological: Alert and Oriented x 3, NL Muscle Strength and Tone Result Diagrams: 07/19/16 06:38 07/19/16 06:38 Additional Lab and Data: Lab Results 07/16/16 07/16/16 07/16/16 Range/Units 12:10 12:10 12:10 WBC 2.9 L (3.5-10.8) 10^3/ul RBC 4.05 (4.0-5.4) 10^6/ul Hgb 13.0 L (14.0-18.0) g/dl Hct 38 L (42-52) % MCV 94 (80-94) fL MCH 32 H (27-31) pg MCHC 34 (31-36) g/dl RDW 14 (10.5-15) % Plt Count 206 (150-450) 10^3/ul MPV 8 (7.4-10.4) um3 Neut % (Auto) 65.3 (38-83) % Lymph % (Auto) 15.0 L (25-47) % [place] % (Auto) 18.5 H (1-9) % Eos % (Auto) 0.6 (0-6) % Baso % (Auto) 0.6 (0-2) % Absolute Neuts (auto) 1.9 (1.5-7.7) 10^3/ul Absolute Lymphs (auto) 0.4 L (1.0-4.8) 10^3/ul Absolute Monos (auto) 0.5 (0-0.8) 10^3/ul Absolute Eos (auto) 0 (0-0.6) 10^3/ul Absolute Basos (auto) 0 (0-0.2) 10^3/ul Absolute Nucleated RBC 0.01 10^3/ul Nucleated RBC % 0.2 INR (Anticoag Therapy) 1.13 H (0.89-1.11) APTT 36.6 H (26.0-36.3) seconds Sodium 124 L (133-145) mmol/L Potassium 3.8 (3.5-5.0) mmol/L Chloride 92 L (101-111) mmol/L Carbon Dioxide 27 (22-32) mmol/L Anion Gap 5 (2-11) mmol/L BUN 23 (6-24) mg/dL Creatinine 0.91 (0.67-1.17) mg/dL Est GFR ( Amer) 102.8 (>60) Est GFR (Non-Af Amer) 80.0 (>60) BUN/Creatinine Ratio 25.3 H (8-20) Glucose 111 H (70-100) mg/dL Lactic Acid (0.5-2.0) mmol/L Calcium 9.0 (8.6-10.3) mg/dL Total Bilirubin 0.70 (0.2-1.0) mg/dL AST 30 (13-39) U/L ALT 28 (7-52) U/L Alkaline Phosphatase 55 (34-104) U/L Troponin I 0.04 H* (<0.04) ng/mL C-Reactive Protein 8.10 H (< 5.00) mg/L B-Natriuretic Peptide ( - 100) pg/mL Total Protein 6.9 (6.4-8.9) g/dL Albumin 4.0 (3.2-5.2) g/dL Globulin 2.9 (2-4) g/dL Albumin/Globulin Ratio 1.4 (1-3) Influenza A (Rapid) (Negative) Influenza B (Rapid) (Negative) 07/16/16 07/16/16 07/16/16 Range/Units 12:10 12:10 12:37 WBC (3.5-10.8) 10^3/ul RBC (4.0-5.4) 10^6/ul Hgb (14.0-18.0) g/dl Hct (42-52) % MCV (80-94) fL MCH (27-31) pg MCHC (31-36) g/dl RDW (10.5-15) % Plt Count (150-450) 10^3/ul MPV (7.4-10.4) um3 Neut % (Auto) (38-83) % Lymph % (Auto) (25-47) % [place] % (Auto) (1-9) % Eos % (Auto) (0-6) % Baso % (Auto) (0-2) % Absolute Neuts (auto) (1.5-7.7) 10^3/ul Absolute Lymphs (auto) (1.0-4.8) 10^3/ul Absolute Monos (auto) (0-0.8) 10^3/ul Absolute Eos (auto) (0-0.6) 10^3/ul Absolute Basos (auto) (0-0.2) 10^3/ul Absolute Nucleated RBC 10^3/ul Nucleated RBC % INR (Anticoag Therapy) (0.89-1.11) APTT (26.0-36.3) seconds Sodium (133-145) mmol/L Potassium (3.5-5.0) mmol/L Chloride (101-111) mmol/L Carbon Dioxide (22-32) mmol/L Anion Gap (2-11) mmol/L BUN (6-24) mg/dL Creatinine (0.67-1.17) mg/dL Est GFR ( Amer) (>60) Est GFR (Non-Af Amer) (>60) BUN/Creatinine Ratio (8-20) Glucose (70-100) mg/dL Lactic Acid 1.8 (0.5-2.0) mmol/L Calcium (8.6-10.3) mg/dL Total Bilirubin (0.2-1.0) mg/dL AST (13-39) U/L ALT (7-52) U/L Alkaline Phosphatase (34-104) U/L Troponin I (<0.04) ng/mL C-Reactive Protein (< 5.00) mg/L B-Natriuretic Peptide 123 H ( - 100) pg/mL Total Protein (6.4-8.9) g/dL Albumin (3.2-5.2) g/dL Globulin (2-4) g/dL Albumin/Globulin Ratio (1-3) Influenza A (Rapid) Negative (Negative) Influenza B (Rapid) Positive H (Negative) Microbiology and Other Data: Microbiology 07/18/16 13:17 Legionella Urinary Antigen - Final Urine Negative Legionella Streptococcus pneumoniae Ag Screen - Final Negative S. pneumo Antigen Assess/Plan/Problems-Billing Assessment: 81 yo M with h/o chronic A. fib presents with influenza B. - Patient Problems (1) Influenza B Comment: cont Tamiflu and antitussives. improving, encourage ambulation. (2) Pneumonia Comment: on 07/18/15 pt was diagnosed with superimposed bacterial pneumonia. Although CXR was read as neg, clinically pt most likely had pneumonia at admission Ceftriaxone/Aziithro started on 07/17/16 (3) Hyponatremia Comment: due to a combination of dehydration and pre admission use of HCTZ. today-improved with IVF. Stop IVF, good PO intake (4) Atrial fibrillation Comment: chronic, rate controlled on lopressor. (5) Neuropathy Comment: gabapentin started Vit B12 level >700 (6) Leukopenia Comment: due to influenza most likely will monitor (7) HTN (hypertension) Comment: cont lopressor, controlled (8) Troponin I above reference range Comment: "flat " at 0.04-pt is symptomatic, suspect due to ongoing illness and demand ischemia. No further tests needed. (9) DVT prophylaxis Comment: Xarelto Status and Disposition: OBV changed to inpatient. Estimated LOS total approx 3 days.
[2016-07-19] MEDS: Cyclobenzaprine TAB* 10 MG PO SCH (22:56)
[2016-07-19] MEDS: oxyCODONE/Acetamin 5/325 MG* TAB PO PRN (23:05)
[2016-07-20] MEDS: Omeprazole CAP* 20 MG PO SCH (06:00)
[2016-07-20 06:36] LABS: Hematocrit 35 % (42-52); Mean Corpuscular HGB Conc 34 g/dl (31-36); Mean Corpuscular Hemoglobin 32 pg (27-31); Mean Corpuscular Volume 92 fL (80-94); Mean Platelet Volume 8 um3 (7.4-10.4); Red Blood Count 3.81 10^6/ul (4.0-5.4); Red Cell Distribution Width 13 % (10.5-15); White Blood Count 2.3 10^3/ul (3.5-10.8)
[2016-07-20 06:43] LABS: Comments Flag Yes
[2016-07-20 06:46] LABS: Add Diff/Slide Review? Slide Review Added
[2016-07-20 08:16] VITALS: BP 127/81
[2016-07-20] MEDS: oxyCODONE/Acetamin 5/325 MG* TAB PO PRN (08:18)
[2016-07-20] MEDS: Gabapentin CAP(*) 100 MG PO SCH (08:19)
[2016-07-20] MEDS: Benzonatate CAP* 100 MG PO SCH (08:19)
[2016-07-20] MEDS: Oseltamivir CAP* 75 MG PO SCH (08:19)
[2016-07-20] MEDS: Spironolactone TAB* 25 MG PO SCH (08:19)
[2016-07-20] MEDS: Hydrocortisone 1% CREAM* 1.5 GM PAK TOPICAL SCH (08:20)
[2016-07-20] MEDS: Finasteride TAB* 5 MG PO SCH (08:20)
[2016-07-20] MEDS: Rivaroxaban TAB(*) 20 MG TAB PO SCH (08:20)
[2016-07-20] MEDS: Metoprolol Succinate XL TAB* 25 MG PO SCH (08:20)
[2016-07-20] MEDS: Tamsulosin CAP* 0.4 MG PO SCH (08:20)
[2016-07-20] MEDS: cefTRIAXone VIAL(*) 1,000 MG in NS 0.9% 50 ML* 50 ML IVPB SCH (12:24)
[2016-07-20] MEDS: Azithromycin IV(*) 500 MG in NS 0.9% 250 ML* 250 ML IVPB SCH (13:08)
--- NOTE | 2016-07-21 04:13 | DS ---
DISCHARGE SUMMARY: DATE OF ADMISSION: 07/16/16 DATE OF DISCHARGE: 07/20/16 PRIMARY CARE PROVIDER: Dr. Cooper. DISCHARGE DIAGNOSES: 1. Influenza B. 2. Superimposed bacterial community-acquired pneumonia, present at admission. 3. Hyponatremia due to hydrochlorothiazide and most likely due to the above- mentioned viral infection. 4. Leukopenia, most likely due to ongoing infection. 5. Mild troponin elevation of 0.04. SECONDARY DIAGNOSES: 1. History of chronic atrial fibrillation, on Xarelto. 2. History of hyponatremia when on hydrochlorothiazide. 3. History of prostate cancer, status post brachytherapy and intermittent problems with urinary retention and self-catheterizations in the past. 4. Myelopathy. 5. Osteoarthritis. 6. Osteoporosis. 7. Right rotator cuff tear. 8. Gastroesophageal reflux disease. 9. Hypertension. 10. Atrial fibrillation. 11. History of a fall 1 month ago with subsequent right shoulder hematoma and right shoulder pain. MEDICATIONS AT DISCHARGE: Include: 1. Tessalon 100 mg 3 times a day p.r.n. 2. Omnicef 300 mg b.i.d. for the next 4 days. 3. Flexeril 10 mg at bedtime. 4. Desonide 0.005% apply to affected area of skin daily. 5. Proscar 5 mg daily. 6. Hydrocodone/acetaminophen as previously taken. 7. Ketoconazole 2% topical apply to skin on the face p.r.n. 8. Metoprolol succinate 25 mg daily. 9. Tamiflu 75 mg p.o. b.i.d. to finish 5 days' treatment. 10. Protonix 40 mg daily. 11. Xarelto 20 mg daily. 12. Aldactone 25 mg daily. 13. Flomax 0.8 mg daily. Microbiology studies were positive for influenza B. Negative for Legionella and Strep pneumo antigen. Urine cultures were negative. Blood cultures were negative to date. The patient developed hyponatremia and leukopenia prior to her hospital stay and that continues to be a problem. White blood cell count on 07/20/16 was 2.3, hemoglobin of 12.0, hematocrit of 35 , and platelets of 166. Please note that white blood cell count a day prior was 2.1. Sodium was 127, potassium 4.0, chloride 99, carbon dioxide 24, BUN 14, creatinine 0.72. Most recent portable chest x-ray obtained on 07/07/16, impression: "No active cardiopulmonary disease." HOSPITALIZATION COURSE: Adrian Preciado is a very nice 81-year-old male with history of atrial fibrillation, on Xarelto, who presented to the hospital after he felt generalized weakness and myalgias as well as fever at home. The patient was noted to be hyponatremic as an outpatient and was most likely due to hyponatremia due to hydrochlorothiazide but as well as ongoing illness. The patient was diagnosed with influenza B. On the day second of his hospital stay , he still felt very poorly with continuation of coughing with yellow sputum production. On auscultation, he had left lower lobe crackles and he was diagnosed clinically of pneumonia, although his x-ray did not document a pneumonia. I suspect the pneumonia was present at admission. He was treated for both a viral infection and bacterial infection with Tamiflu as well as azithromycin and ceftriaxone with good results. By the time of discharge, his hyponatremia improved that I believe also intravenous hydration with normal saline contributed. The patient continued to be leukopenic throughout his hospital stay, but that stabilized and slightly improved at the time of discharge. At discharge, the patient is to finish 5-day treatment of Tamiflu and 7-day treatment with third generation cephalosporin. He is to follow up with his primary care physician in approximately 4 to 7 days. PHYSICAL EXAMINATION AT THE TIME OF DISCHARGE: Blood pressure of 127/81, heart rate of 76 and regular, respiratory rate 16, oxygen saturation 97% on room air, and temperature 97.4. General: The patient is a very pleasant 81-year-old male who is in no acute distress. Alert, awake, and oriented x3. HEENT: Head : Atraumatic, normocephalic. Eyes: Pupils equal, reactive to light and accommodation. Oropharynx clear. Mucosa moist. Neck: Supple. No JVD, no bruit bilaterally. Cardiovascular: Irregularly irregular rhythm. No murmur. Respiratory: Crackles at left lung base. Abdomen: Soft, nontender. Bowel sounds present in all 4 quadrants. Extremities: There is no edema. Pulses +2 bilaterally. No clubbing or cyanosis. On evaluation of the skin, the patient has resolving right shoulder ecchymosis. Please note that throughout the patient's hospital stay, he complained of right shoulder pain after his fall that he sustained approximately 2 to 3 weeks ago. There was no shoulder effusion on evaluation. There was no erythema noted. The patient is scheduled for followup with his primary care provider and most likely an outpatient MRI of the shoulder. Please note that this is a short summary of the patient's hospital stay. Please refer to further medical records for details. TIME SPENT: Approximately 40 minutes were spent on the patient's discharge. CC: Dr. Cooper; Lina Riley NP* [id number]/[facility] #: [id number] [facility]ENTERRaghu
== END 2016-07-20 16:55 | disposition home or self-care (01) | DRG 194 ==
LOC: ED 12:02 → MEDTELE 13:31 → OBSVTOIN 07-17 08:40
PROVIDERS: ADMIT Internal Medicine; ATTEND Internal Medicine
DX: J10.08 Influenza due to other identified influenza virus with other specified pneumonia (principal); G95.9 Disease of spinal cord, unspecified; E87.1 Hypo-osmolality and hyponatremia; I48.91 Unspecified atrial fibrillation; E86.0 Dehydration; G62.9 Polyneuropathy, unspecified; I10 Essential (primary) hypertension; J15.9 Unspecified bacterial pneumonia; M19.90 Unspecified osteoarthritis, unspecified site; M81.0 Age-related osteoporosis without current pathological fracture; M25.511 Pain in right shoulder; K21.9 Gastro-esophageal reflux disease without esophagitis; G89.29 Other chronic pain; M54.5 Low back pain; Z91.81 History of falling; Z85.46 Personal history of malignant neoplasm of prostate; Z79.01 Long term (current) use of anticoagulants
CPT/HCPCS: 36415; 71010; 71020; 80048; 80053; 81003; 81015; 82607; 83605; 83880; 84484; 85025; 85610; 85730; 86140; 87040; 87086; 87502; 87899; 93005; A9270-GY; J0456; J0696